=== PATIENT | female | born 1970 | race African-American/Black ===

== ENCOUNTER 2018-09-06 06:24 | Day surgery (SDC) | payer OTHER ==
[~2018-09-06 06:24] MED LIST: CEFAZOLIN 1 GM/D5W RTU 1 GM/50 ML RTUPB IV PRN
[2018-09-06] MEDS ORDERED: POLYMYXIN B SULFATE INJ 500000 UNIT VIAL ONE (07:08)
[2018-09-06] MEDS ORDERED: NORMAL SALINE INJ/PF 0.9% 10 ML SDV ONE (07:08)
[2018-09-06] MEDS ORDERED: LIDOCAINE 2% INJ (20 MG/ML) 20 ML MDV ONE (07:08)
[2018-09-06] MEDS ORDERED: BACITRACIN INJ 50,000 UNIT VIAL ONE (07:09)
[2018-09-06] MEDS ORDERED: BUPIVACAINE INJ/PF LIPOSOME/PF 266 MG/20 ML SDV ONE (07:09)
[2018-09-06] MEDS ORDERED: FENTANYL CITRATE INJ/PF 100 MCG/2 ML AMPUL ONE (07:22)
[2018-09-06] MEDS ORDERED: MIDAZOLAM 2 MG/2 ML INJ ONE (07:22)
[2018-09-06] MEDS ORDERED: ONDANSETRON HCL INJ/PF 4 MG/2 ML SDV ONE (07:22)
[2018-09-06] MEDS ORDERED: PROPOFOL INJ 200 MG/20 ML VIAL IV ONE ×2 (07:23→11:08)
[2018-09-06] MEDS: BUPIVACAINE HCL 0.5 % INJ/PF 30 ML SDV ONE ×2 (07:50→08:30)
--- NOTE | 2018-09-06 09:44 | RADIOLOGY REPORT (SQ) ---
EXAM DESCRIPTION: NO CHG FLUORO; FOOT RIGHT 2 VIEWS COMPLETED DATE/TIME: 09/06/2018 9:23 am REASON FOR STUDY: RT FOOT OCHOA BUNIONECTOMY COMPARISON: None. FINDINGS: 2 images of the great toe, side not labeled. MP joint arthroplasty in place. No gross fr acture. Total fluoro time 6 seconds. TECHNICAL DOCUMENTATION: JOB ID: [id number] Reading location - IP/workstation name: [email or web address]
--- NOTE | 2018-09-06 09:44 | RADIOLOGY REPORT (SQ) ---
EXAM DESCRIPTION: NO CHG FLUORO; FOOT RIGHT 2 VIEWS COMPLETED DATE/TIME: 09/06/2018 9:23 am REASON FOR STUDY: RT FOOT OCHOA BUNIONECTOMY COMPARISON: None. FINDINGS: 2 images of the great toe, side not labeled. MP joint arthroplasty in place. No gross fr acture. Total fluoro time 6 seconds. TECHNICAL DOCUMENTATION: JOB ID: [id number] Reading location - IP/workstation name: [email or web address]
--- NOTE | 2018-09-06 10:57 | SURGICARE OPERATIVE REPORT E ---
[facility] Operative Report NAME: SANJEEV MOREJON AGE: 48Y DATE OF SURGERY: 09/06/2018 ROOM: PREOPERATIVE DIAGNOSIS: Hallux limitus, right foot. 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 OPERATION: Whitley bunionectomy with insertion of total implant first metatarsophalangeal joint, right foot. SURGEON: KELSIE ANGEL DPM ELECTRIC TRUCKER: BRIDGETT VEE DPM PROCEDURE: Following induction of IV regional local anesthesia, the right foot and leg were prepped and draped in the usual sterile manner. A pneumatic tourniquet was placed around the right ankle and inflated to 250 mmHg after exsanguination of the limb via Esmarch bandage. The following surgical procedure was then performed: Whitley bunionectomy with insertion of total Silastic implant right foot. Attention was directed to the dorsal aspect of the first metatarsophalangeal joint of the right foot where an approximately 5 cm dorsal linear incision was made. The incision was deep and via sharp dissection. All bleeders were clamped and bovied as necessary for the purposes of hemostasis. A capsular incision was made in the same manner as the original skin incision and was made medial to the extensor hallucis longus tendon. The capsule was then freed medially and laterally from the first metatarsophalangeal joint. It was noted that there was joint fluid present and that there was hypertrophied bone at the dorsal aspect of the first metatarsal head. Inspection of the cartilage at the first metatarsophalangeal joint showed that there was erosion of the cartilage both at the head of the metatarsal and at the base of the proximal phalanx. Utilizing rongeur, the hypertrophied bone at the dorsal aspect of the first metatarsal head was removed. Utilizing a John sagittal saw, the base of the proximal phalanx was osteotomized perpendicular to the long axis of the bone and this was performed approximately 1 cm distal to the joint. The bone was then freed from its soft tissue attachment and removed from the wound. Utilizing [place] sagittal saw, approximately 2 mm of the head of the first metatarsal was osteotomized, perpendicular long axis of the bone removed en toto from the wound. Utilizing [place] elevator, the tibial and fibular sesamoids were freed from the plantar aspect of the first metatarsal head. Utilizing a side-setting bur, a hole was reamed into the head of the first metatarsal and into the base of the proximal phalanx. Utilizing a combination a [place] rasp and broaches for a size 2 implant, the head of the first metatarsal and the base of the proximal phalanx were reamed. An x-ray was taken with a 2S sizer placed across the joint and it was noted that the first metatarsophalangeal joint was in a good position and that the sizer fit the joint. The areas in the dorsal aspect of the head of the first metatarsal was then rasped smooth utilizing a [employer] cross-cut rasp. The area was then flushed with copious amounts of antibacterial saline solution until no bony debris was noted in the wound. A Gracia flexible hinge toe with grommets size 2S was then placed across the joint down through the proximal aspect going into the head of the first metatarsal and the distal aspect going into the proximal phalanx. An x-ray was taken. It was noted that the implant was seated correctly, it was the correct size, and that the first metatarsophalangeal joint was in an anatomically correct position. The capsule was then coapted and maintained utilizing simple interrupted sutures of 3-0 Vicryl. Total of 20 mL of Exparel was then injected subcutaneously along the length of the incision and along the surgical site. The subcutaneous tissue was then coapted and maintained utilizing simple interrupted sutures of 4-0 Vicryl and the skin was coapted and maintained utilizing horizontal mattress sutures of 5-0 nylon. Dry sterile dressing was then applied consisting of Dave silk, 4 x 4s, Conform, Kerlix, and Coban. The pneumatic tourniquet was released. It was noted that all digits were warm and viable and patient was transferred to the recovery room. DICTATING PHYSICIAN: KELSIE ANGEL D.P.M. [id number] PHY#: [id number] ID: [id number] JOB#: [id number] ACCT: [id number] cc:KELSIE ANGEL DPM > CHAUNCEY
--- NOTE | 2018-09-06 12:32 | SURGICARE DISCHARGE SUMMARY E ---
[facility] Discharge Summary NAME: SANJEEV MOREJON AGE: 48Y ADMITTED: 09/06/2018 DISCHARGED: 09/06/2018 SURGICAL PROCEDURE: Whitley bunionectomy with insertion of total Silastic implant, right foot. POSTOPERATIVE DIAGNOSIS: Hallux limitus with degenerative joint disease of first metatarsophalangeal joint right foot. SURGEON: Kelsie Angel DPM WHITE LEAD FILTERER: Phil Hussein DPM HOSPITAL COURSE: The patient was admitted to [facility] with a chief complaint of a painful first metatarsophalangeal joint. She stated that whenever she walked she was in pain and had been progressively getting worse. The patient had undergone conservative therapy with anti-inflammatories and steroid injections with no cessation of her symptoms. She desired to have this problem surgically corrected. She underwent the above surgical procedure without any complications and was transferred to the recovery room. She was discharged with a surgical shoe and ice pack, postoperative instructions, including no weightbearing on the surgical foot. Postoperative prescriptions for Percocet 5/325 mg, #30 and cephalexin 500 mg, #4. She was given a followup appointment in the doctor's office in 1 week. The patient was discharged from [facility]. DICTATING PHYSICIAN: KELSIE ANGEL D.P.M. [id number] PHY#: [id number] ID: [id number] JOB#: [id number] ACCT: [id number] cc:KELSIE ANGEL DPM >
== END 2018-09-06 10:30 | disposition home or self-care (01) ==
LOC: SC 06:24
PROVIDERS: ATTEND Podiatrist Foot Surgery
DX: M19.071 Primary osteoarthritis, right ankle and foot (principal); M20.5X1 Other deformities of toe(s) (acquired), right foot; M94.8X7 Other specified disorders of cartilage, ankle and foot; I10 Essential (primary) hypertension; M06.9 Rheumatoid arthritis, unspecified; E78.5 Hyperlipidemia, unspecified; Z79.899 Other long term (current) drug therapy; Z88.2 Allergy status to sulfonamides; M79.7 Fibromyalgia; G43.909 Migraine, unspecified, not intractable, without status migrainosus
CPT/HCPCS: 28292; 73620; C1776; J2250; J3490 ×5; J0690; J3010; J2405; J2704; C9290; 01480